=== PATIENT | female | born 1975 | race Caucasian/White ===

== ENCOUNTER 2017-02-07 19:57 | Emergency (ER) | payer OTHER ==
[~2017-02-07] VITALS: Ht 149.8 cm; Wt 113.4 kg
[2017-02-07] MEDS ORDERED: Motrin,Rufen800 MG PO (21:51)
[2017-02-07] MEDS ORDERED: ULTRAM50 MG PO (21:51)
== END 2017-02-07 22:05 | disposition home or self-care (01) ==
LOC: ED 19:57
DX: S96.911A Strain of unspecified muscle and tendon at ankle and foot level, right foot, initial encounter (principal); Z88.0 Allergy status to penicillin; V19.9XXA Pedal cyclist (driver) (passenger) injured in unspecified traffic accident, initial encounter; Y93.55 Activity, bike riding; Y92.89 Other specified places as the place of occurrence of the external cause; Y99.8 Other external cause status

== ENCOUNTER 2017-10-03 20:42 | Emergency (ER) | payer MEDICAID ==
[~2017-10-03] VITALS: Ht 124.4 cm; Wt 113.4 kg
[~2017-10-03 20:42] MED LIST: Motrin,Rufen800 MG PO; ULTRAM50 MG PO
[2017-10-03] MEDS ORDERED: OMEPRAZOLE D/R20 MG PO (21:11)
[2017-10-03] MEDS ORDERED: TOPROL XL50 M1 PO (21:12)
[2017-10-03] MEDS ORDERED: METOCLOPRAMIDE10 MG PO (21:13)
== END 2017-10-03 21:53 | disposition home or self-care (01) ==
LOC: ED 20:42
DX: O26.893 Other specified pregnancy related conditions, third trimester (principal); R60.0 Localized edema; R10.2 Pelvic and perineal pain; Z88.0 Allergy status to penicillin; Z79.899 Other long term (current) drug therapy

== ENCOUNTER 2020-06-23 11:51 | Emergency (ER) | payer OTHER ==
[~2020-06-23] VITALS: Ht 149.8 cm; Wt 136.1 kg
[~2020-06-23 11:51] MED LIST changes: +METOCLOPRAMIDE10 MG PO; +OMEPRAZOLE D/R20 MG PO; +TOPROL XL50 M1 PO
[2020-06-23] MEDS ORDERED: IBUPROFEN600 MG PO ×2 (13:02→13:21)
== END 2020-06-23 13:13 | disposition home or self-care (01) ==
LOC: ED 11:51
DX: S83.92XA Sprain of unspecified site of left knee, initial encounter (principal); Z88.0 Allergy status to penicillin; Z79.899 Other long term (current) drug therapy; X50.1XXA Overexertion from prolonged static or awkward postures, initial encounter; Y93.89 Activity, other specified; Y92.89 Other specified places as the place of occurrence of the external cause; Y99.8 Other external cause status

== ENCOUNTER → 2020-12-03 | Outpatient (CLI) | payer OTHER ==
[~2020-12-03] MED LIST changes: +IBUPROFEN600 MG PO
== END | disposition home or self-care (01) ==
LOC: RESCLI 00:55
PROVIDERS: ATTEND Internal Medicine
DX: K21.9 Gastro-esophageal reflux disease without esophagitis (principal); F32.9 Major depressive disorder, single episode, unspecified; R00.0 Tachycardia, unspecified; E78.2 Mixed hyperlipidemia; E66.9 Obesity, unspecified; E55.9 Vitamin D deficiency, unspecified; N95.1 Menopausal and female climacteric states; Z12.31 Encounter for screening mammogram for malignant neoplasm of breast; Z79.899 Other long term (current) drug therapy; Z90.49 Acquired absence of other specified parts of digestive tract; Z98.890 Other specified postprocedural states

== ENCOUNTER 2021-04-28 16:58 | Emergency (ER) | payer SELFPAY ==
[~2021-04-28] VITALS: Wt 113.4 kg
[2021-04-28] MEDS ORDERED: ZITHROMAX250 MG PO ×3 (17:31→17:40)
== END 2021-04-28 17:10 | disposition home or self-care (01) ==
LOC: ED 16:58
DX: H66.92 Otitis media, unspecified, left ear (principal); Z88.0 Allergy status to penicillin; Z79.899 Other long term (current) drug therapy

== ENCOUNTER → 2021-05-17 | Outpatient (CLI) | payer SELFPAY ==
[~2021-05-17] MED LIST changes: +ZITHROMAX250 MG PO
== END | disposition home or self-care (01) ==
LOC: RESCLI 00:28
PROVIDERS: ATTEND Internal Medicine
DX: L53.8 Other specified erythematous conditions (principal); K21.9 Gastro-esophageal reflux disease without esophagitis; F32.9 Major depressive disorder, single episode, unspecified; R00.0 Tachycardia, unspecified; E78.2 Mixed hyperlipidemia; E55.9 Vitamin D deficiency, unspecified; B35.4 Tinea corporis; N95.1 Menopausal and female climacteric states; Z79.899 Other long term (current) drug therapy; Z90.49 Acquired absence of other specified parts of digestive tract

== ENCOUNTER → 2021-11-14 | Outpatient (CLI) | payer SELFPAY | END | disposition home or self-care (01) | LOC: US 16:00 | PROVIDERS: ATTEND Nurse Practitioner Family | DX: R22.41 Localized swelling, mass and lump, right lower limb (principal) ==

== ENCOUNTER 2022-08-02 09:34 | Emergency (ER) | payer SELFPAY ==
[~2022-08-02] VITALS: Ht 149.8 cm; Wt 136.1 kg
[2022-08-02] MEDS ORDERED: TYLENOL325 M1 PO (10:49)
[2022-08-02] MEDS ORDERED: NAPROXEN250 MG PO (10:49)
[2022-08-02] MEDS ORDERED: MUCINEX DM 30/61 TAB PO (10:49)
== END 2022-08-02 10:54 | disposition home or self-care (01) ==
LOC: ED 09:34
DX: J06.9 Acute upper respiratory infection, unspecified (principal); Z20.822 Contact with and (suspected) exposure to COVID-19; H92.02 Otalgia, left ear; Z88.0 Allergy status to penicillin; Z79.899 Other long term (current) drug therapy; Z79.2 Long term (current) use of antibiotics

== ENCOUNTER 2023-09-15 14:40 | Emergency (ER) | payer OTHER ==
[~2023-09-15] VITALS: Ht 149.8 cm; Wt 124.7 kg
[~2023-09-15 14:40] MED LIST changes: +MUCINEX DM 30/61 TAB PO; +NAPROXEN250 MG PO; +TYLENOL325 M1 PO
[2023-09-15] MEDS ORDERED: ATORVASTATIN CA20 M1 PO (14:59)
[2023-09-15] MEDS ORDERED: SERTRALINE HYD100 MG PO (14:59)
== END 2023-09-15 16:12 | disposition home or self-care (01) ==
LOC: ED 14:40
DX: H66.91 Otitis media, unspecified, right ear (principal); Z20.822 Contact with and (suspected) exposure to COVID-19; J02.9 Acute pharyngitis, unspecified; H92.02 Otalgia, left ear; Z88.0 Allergy status to penicillin; Z79.899 Other long term (current) drug therapy

== ENCOUNTER 2024-08-02 13:54 | Emergency (ER) | payer OTHER ==
[~2024-08-02] VITALS: Ht 149.8 cm; Wt 136.1 kg
[~2024-08-02 13:54] MED LIST changes: +ATORVASTATIN CA20 M1 PO; +SERTRALINE HYD100 MG PO
[2024-08-02] MEDS ORDERED: LEVOFLOXACIN 750 MG TAB PO ONE (14:45)
[2024-08-02] MEDS ORDERED: LEVOFLOXACIN750 M2 PO (14:52)
[2024-08-02] MEDS ORDERED: CIPROFLOX-DEXA7.5 ML OT (14:52)
== END 2024-08-02 15:02 | disposition home or self-care (01) ==
LOC: ED 13:54
DX: H66.93 Otitis media, unspecified, bilateral (principal); I10 Essential (primary) hypertension; Z88.0 Allergy status to penicillin; Z90.49 Acquired absence of other specified parts of digestive tract; Z98.890 Other specified postprocedural states

== ENCOUNTER → 2024-08-04 | Outpatient (CLI) | payer OTHER ==
[~2024-08-04] MED LIST changes: +CIPROFLOX-DEXA7.5 ML OT; +LEVOFLOXACIN750 M2 PO
== END | disposition home or self-care (01) ==
LOC: RAD 14:03
PROVIDERS: ATTEND Nurse Practitioner
DX: R06.02 Shortness of breath (principal)

== ENCOUNTER → 2025-05-07 | Outpatient (CLI) | payer OTHER | END | disposition home or self-care (01) | LOC: RAD 07:46 | PROVIDERS: ATTEND Nurse Practitioner | DX: M47.817 Spondylosis without myelopathy or radiculopathy, lumbosacral region (principal); R20.0 Anesthesia of skin; M25.551 Pain in right hip ==